=== PATIENT | male | born 1985 | race Caucasian/White ===

== ENCOUNTER 2016-11-21 17:47 | Observation (INO) ==
--- NOTE | 2016-11-21 18:43 | Emergency Department Note ---
Disposition Clinical Impression: Asthma, Smoker, Vomiting, Influenza A, Wheezing Disposition: Admitted As Inpatient Referrals: NO,PCP [Primary Care Provider] - Forms: ED Satisfaction Letter General Adult HPI - General Chief complaint: ED Nausea/Vomiting/Diarrhea Stated complaint: cold symptoms/n/v Time Seen by Provider: 11/21/16 18:40 Source: patient Limitations: no limitations - History of Present Illness HPI Narrative: 31-year-old male reports emergency department complaining of a cough, shortness of breath, generalized aches and pains, sore throat and runny nose. He reports his son has similar symptoms regarding cough and runny nose. The patient reports he has had a fever. He has been ill for about a day. The patient describes a history of asthma. He is a smoker. The patient denies any heart problems no history of CHF DVT PE or cancer. There is no history of leg swelling or pain, no coughing up blood or syncope. He has vomited a few times but does not have significant abdominal pain no diarrhea. He describes a headache associated with coughing. I.e. when he coughs his head hurts. There is no history of head trauma, no neck stiffness or rash. No convulsions or confusion or trouble walking hearing seeing or speaking. The patient has had no acute back pain. He does not take blood thinning medication. There is no history of unilateral arm or leg weakness or numbness. No trouble speaking or hearing. No dysarthria. Onset (ago): day(s) Pain Scale: 10 - Related Data Previous Rx's Medication Instructions Recorded Gabapentin [Neurontin] 800 mg PO TID #90 tablet 12/03/15 HydrOXYzine Pamoate [HydrOXYzine 50 mg PO TID PRN #90 cap 12/03/15 Pamoate] RX: Doxepin [Sinequan] 25 mg PO HS PRN #60 capsule 12/03/15 RX: Ibuprofen [Motrin] 400 mg PO Q6HR PRN #60 tablet 12/03/15 Cephalexin [Keflex] 500 mg PO BID #20 capsule 12/05/15 Sulfamethoxazole/Trimeth DS 2 each PO BID #40 tablet 12/05/15 [Bactrim DS] Ropinirole HCl [Requip] 2 mg PO HS 20 Days 12/31/15 Ondansetron ODT [Zofran ODT] 4 mg SL Q6HR PRN #15 tab.rapdis 01/19/16 RX: Gabapentin [Neurontin] 800 mg PO TID #90 tablet 09/14/16 Allergies Allergy/AdvReac Type Severity Reaction Status Date / Time codeine Allergy Hives Verified 09/14/16 18:25 All systems ED: reviewed and negative except as stated. Past Medical History - Past Medical History Medical history: Reports: asthma, kidney stones Surgical history: Reports: other Psychiatric history: Reports: depression, prior suicide attempt, previous psychiatric hospitalization - Social History Smoking Status: Current every day smoker Smokeless Tobacco Status: No Alcohol use: Reports: none Drug use: Reports: none, cocaine, opiates, marijuana, methamphetamine Physical Exam - General Limitations: no limitations General appearance: alert, in no apparent distress - Head Head exam: atraumatic, normocephalic, normal inspection - Eye Eye exam: Present: normal appearance, PERRL, EOMI - ENT ENT exam: normal exam, normal oropharynx, mucous membranes moist, TM's normal bilaterally, normal external ear exam - Neck Neck exam: Present: normal inspection, full ROM, trachea midline. Absent: meningismus - Chest Chest inspection: Present: symmetric chest wall rise. Absent: tenderness - Respiratory Respiratory exam: Present: wheezes, prolonged expiratory phase. Absent: respiratory distress - Cardiovascular Cardiovascular exam: Present: normal rhythm, tachycardia - Abdominal Exam Abdominal exam: Present: soft, Non-Tender, normal bowel sounds. Absent: tenderness, distention, guarding, rebound, rigidity, pulsatile mass - Extremities Exam Extremities exam: Present: normal inspection, full ROM, normal capillary refill. Absent: tenderness, pedal edema, joint swelling, calf tenderness - Expanded Lower Extremity Exam Neurovascular/Tendon exam: Absent: motor deficit, sensory deficit, tendon deficit, extremity cold to touch, pallor - Back Exam Back exam: Present: normal inspection, full ROM. Absent: tenderness, CVA tenderness (L), vertebral tenderness - Neurological Exam Neurological exam: Present: alert, oriented X3, CN II-XII intact. Absent: motor sensory deficit - Psychiatric Psychiatric exam: Present: normal affect, normal mood - Skin Skin exam: Present: warm, dry, intact, normal color. Absent: rash, cyanosis, diaphoresis, erythema, pallor, mottled Course - Reevaluation(s) Reevaluation #1: The patient received Solu-Medrol, as well as a DuoNeb. Re-auscultation of the lungs reveals markedly wheezing. A second DuoNeb was ordered. The patient reports he has no asthma medication is at home. He has not been admitted to the hospital as he was a child. He has never been on a ventilator. Vital Signs Temperature 99 F 11/21/16 18:15 Pulse Rate 102 11/21/16 18:15 Respiratory Rate 20 11/21/16 18:15 Blood Pressure 118/67 11/21/16 18:15 O2 Sat by Pulse Oximetry 94 L 11/21/16 18:15 Temperature 99 F 11/21/16 18:46 Pulse Rate 111 11/21/16 20:30 Respiratory Rate 16 11/21/16 20:30 Blood Pressure 147/76 11/21/16 20:30 O2 Sat by Pulse Oximetry 93 L 11/21/16 20:30 Oxygen Delivery Oxygen Delivery Room Air Medical Decision Making - MDM Narrative Medical decision making narrative: Patient has a known history of asthma, he is a smoker, he is flu A+, the patient has no breathing medicines or nebulizer at home, he was given Solu- Medrol and to Duo nebs here, he had persistent wheezing status post 2 nebs, IV fluid was also initiated.. His oxygen saturations did climb to 97% on room air , however he was still somewhat tachypnea and felt short of breath. Persistent wheezing noted. Based on the patient's acute infection, history of asthma, nicotine dependence, and persistent wheezing, reports of vomiting, initial tachycardia, and slightly low blood pressure, I thought it would be appropriate to admit the patient for observation and further therapy. I consulted with the hospitalist on-call. - Lab Data Lab results reviewed: Yes I reviewed the patient's lab results. Result diagrams: 11/21/16 19:03 11/21/16 19:03 Lab Results 11/21/16 11/21/16 Range/Units 19: 19: WBC 10.3 (4.3-11.1) K/mcL RBC 5.60 H (4.19-5.50) M/mcL Hgb 15.9 (12.9-16.9) g/dL Hct 48.0 (37.5-50.1) % MCV 85.7 (83.0-100.0) fL MCH 28.4 (28.0-33.3) pg MCHC 33.1 (31.6-35.5) g/dL RDW 13.4 (11.5-14.5) % Plt Count 195 (140-400) K/mcL MPV 9.3 L (9.4-12.4) fL Immature Gran % 0.3 (0-4) % Seg Neutrophils % 84.5 % Lymphocytes % 8.5 % Monocytes % 6.4 % Eosinophils % 0.0 % Basophils % 0.3 % Neutrophils # 8.7 (1.6-8.9) K/mcL Lymphocytes # 0.9 (0.6-4.6) K/mcL Monocytes # 0.7 (0.0-1.3) K/mcL Eosinophils # 0.0 (0.0-0.6) K/mcL Basophils # 0.0 (0.0-0.2) K/mcL Sodium 137 (136-145) mEq/L Potassium 4.4 (3.5-4.5) mEq/L Chloride 103 (98-109) mEq/L Carbon Dioxide 25 (19-29) mEq/L BUN 11 (8-26) mg/dL Creatinine 0.86 (0.72-1.25) mg/dL Est GFR ( Amer) > 60 (> 60) Est GFR (Non-Af Amer) > 60 (> 60) BUN/Creatinine Ratio 13 (6-26) Glucose 113 H (70-99) mg/dL Calculated Osmolality 284 (280-300) Calcium 9.1 (8.6-10.8) mg/dL Total Bilirubin 0.4 (0.2-1.2) mg/dL AST 25 (5-34) Units/L ALT 16 (0-55) Units/L Alkaline Phosphatase 74 (38-126) Units/L C-Reactive Protein 110 H (Less than 5) mg/L Serum Total Protein 8.2 (6.0-8.3) g/dL Albumin 4.2 (3.5-5.0) g/dL Globulin 4.0 H (2.4-3.5) g/dL Albumin/Globulin Ratio 1.1 (1.1-2.2) Lipase < 4 L (8-78) Units/L - Radiology Data Radiology results reviewed: Yes I reviewed the patient's radiology results.
[2016-11-21] MEDS ORDERED: Ipratropium/Albuterol Neb 3 ML IH ONE ×2 (18:50→19:55)
[2016-11-21] MEDS ORDERED: methylPREDNISolone 125 MG/2 ML VIAL IVP ONE (18:50)
[2016-11-21 19:09] LABS: Basophils % 0.3 %; Hemoglobin 15.9 g/dL (12.9-16.9); Immature Granulocytes % 0.3 % (0-4); Lymphocytes # 0.9 K/mcL (0.6-4.6); Lymphocytes % 8.5 %; Mean Corpuscular HGB Conc 33.1 g/dL (31.6-35.5); Mean Corpuscular Hemoglobin 28.4 pg (28.0-33.3); Mean Corpuscular Volume 85.7 fL (83.0-100.0); Mean Platelet Volume 9.3 fL (9.4-12.4); Monocytes # 0.7 K/mcL (0.0-1.3); Monocytes % 6.4 %; Neutrophils # 8.7 K/mcL (1.6-8.9); Platelet Count 195 K/mcL (140-400); Red Cell Distribution Width 13.4 % (11.5-14.5); Segmented Neutrophils % 84.5 %
[2016-11-21 19:25] LABS: Alanine Aminotransferase 16 Units/L (0-55); Albumin 4.2 g/dL (3.5-5.0); Albumin/Globulin Ratio 1.1 (1.1-2.2); Alkaline Phosphatase 74 Units/L (38-126); Aspartate Amino Transferase 25 Units/L (5-34); BUN/Creatinine Ratio 13 (6-26); Bilirubin,Total 0.4 mg/dL (0.2-1.2); Blood Urea Nitrogen 11 mg/dL (8-26); C-Reactive Protein 110 mg/L (Less than 5); Calcium 9.1 mg/dL (8.6-10.8); Carbon Dioxide 25 mEq/L (19-29); Chloride 103 mEq/L (98-109); Glucose 113 mg/dL (70-99); Lipase < 4 Units/L (8-78); Osmolality,Calculated 284 (280-300); Potassium 4.4 mEq/L (3.5-4.5); Sodium 137 mEq/L (136-145); Total Protein 8.2 g/dL (6.0-8.3); eGFR For African Americans > 60 (> 60); eGFR For Non-African Americans > 60 (> 60)
--- NOTE | 2016-11-21 23:26 | Internal Med History&Physical ---
Date of Encounter: 11/21/16 Time of Encounter: 23:23 Assessment and Plan (1) Acute asthma exacerbation Current visit: Yes Status: Acute Will start the patient on Solu-Medrol and [id number] nebulizer treatment. He will receive azithromycin 500 mg intravenously daily for acute bronchitis given his history of asthma and chronic smoking. His CRP is 100 will follow Qualifiers: Qualified Code(s): J45.901 - Unspecified asthma with (acute) exacerbation (2) Influenza A Current visit: Yes Status: Acute Tamiflu 75 mg twice daily. Airborne isolation Internal Medicine - H&P: HPI Chief complaint: sob History of present illness: Mr. Zheng is a 31 year old male with a past medical history of mild intermittent asthma presents to the emergency room today with shortness of breath. Approximately 36 hours ago patient started noticing a multitude of symptoms including bon fever up to 101, chills, sore throats, cough aches malaise and shortness of breath with any minimal exertion and chest wheezing. He mentioned that his son was sick earlier before him. work up in the emergency room showed evidence of influenza a virus infection. For observation There is a 17 pack your smoking history. He was persistently tachycardic and short of breath despite multiple breathing treatments so is being admitted to the hospital for observation. Social: He used to the illicit drugs before but not currently. He smokes one pack of cigarettes daily for the past 17 years. rarely alcohol family history: positive for coronary artery disease past medical history as above in addition to depression Past Med Surg Social Fam HX - Past Medical History Medical history: asthma, kidney stones Psychiatric history: depression, prior suicide attempt, previous psychiatric hospitalization - Past Surgical History Surgical History: other - Social History Smoking Status: Current every day smoker Smokeless Tobacco Status: No Alcohol use: none Drug use: none, cocaine, opiates, marijuana, methamphetamine Internal Medicine - H&P: Meds Doxepin [Sinequan] 25 mg PO HS PRN #60 capsule 12/03/15 [Rx] Gabapentin [Neurontin] 800 mg PO TID #90 tablet 12/03/15 [Rx] HydrOXYzine Pamoate [HydrOXYzine Pamoate] 50 mg PO TID PRN #90 cap 12/03/15 [Rx] Ibuprofen [Motrin] 400 mg PO Q6HR PRN #60 tablet 12/03/15 [Rx] Cephalexin [Keflex] 500 mg PO BID #20 capsule 12/05/15 [Rx] Sulfamethoxazole/Trimeth DS [Bactrim DS] 2 each PO BID #40 tablet 12/05/15 [Rx] Ropinirole HCl [Requip] 2 mg PO HS 20 Days 12/31/15 [Rx] Ondansetron ODT [Zofran ODT] 4 mg SL Q6HR PRN #15 tab.rapdis 01/19/16 [Rx] Gabapentin [Neurontin] 800 mg PO TID #90 tablet 09/14/16 [Rx] Allergies codeine Allergy (Verified 09/14/16 18:25) Hives All Systems PM: A 10-system review of systems was performed and is negative for pertinent findings except as documented above in the HPI. Review of systems: 10 point review systems is negative except for HPI. - Constitutional Vitals: Temp Pulse Resp BP Pulse Ox 99 F 103 16 137/70 94 L 11/21/16 18:46 11/21/16 22:00 11/21/16 23:00 11/21/16 23:00 11/21/16 22:00 Exam: Gen.: patient is alert oriented not in distress. Cardiac: Normal S1 S2 no additional sounds or murmurs chest: expiratory wheezing, coarse breath sounds abdomen soft nontender nondistended normal bowel sounds lower extremity: lax calf muscles neuro no focal deficit Internal Med - H&P Results - Labs CBC & Chem 7: 11/21/16 19:03 11/21/16 19:03
[2016-11-21] MEDS: Ipratropium/Albuterol Neb 3 ML IH SCH (23:41)
[2016-11-21] MEDS: Azithromycin 500 MG in D5% in Water 250 ML IVPB SCH (23:43)
[2016-11-21] MEDS: methylPREDNISolone 125 MG/2 ML VIAL IVP SCH (23:43)
[2016-11-22] MEDS: Ipratropium/Albuterol Neb 3 ML IH SCH ×6 (03:31→23:29)
[2016-11-22 05:09] LABS: Basophils % 0.2 %; Hematocrit 45.4 % (37.5-50.1); Immature Granulocytes % 0.3 % (0-4); Lymphocytes # 0.4 K/mcL (0.6-4.6); Lymphocytes % 7.1 %; Mean Corpuscular Hemoglobin 28.6 pg (28.0-33.3); Mean Corpuscular Volume 86.6 fL (83.0-100.0); Mean Platelet Volume 10.8 fL (9.4-12.4); Monocytes # 0.1 K/mcL (0.0-1.3); Monocytes % 2.1 %; Neutrophils # 5.5 K/mcL (1.6-8.9); Platelet Count 144 K/mcL (140-400); Red Blood Count 5.24 M/mcL (4.19-5.50); Red Cell Distribution Width 13.3 % (11.5-14.5); Segmented Neutrophils % 90.3 %
[2016-11-22 05:27] LABS: BUN/Creatinine Ratio 17 (6-26); Blood Urea Nitrogen 14 mg/dL (8-26); C-Reactive Protein 111 mg/L (Less than 5); Calcium 8.7 mg/dL (8.6-10.8); Carbon Dioxide 21 mEq/L (19-29); Chloride 106 mEq/L (98-109); Glucose 244 mg/dL (70-99); Magnesium 2.2 mg/dL (1.6-2.6); Osmolality,Calculated 293 (280-300); Potassium 3.8 mEq/L (3.5-4.5); Sodium 137 mEq/L (136-145); eGFR For African Americans > 60 (> 60); eGFR For Non-African Americans > 60 (> 60)
[2016-11-22 05:37] LABS: Platelet Estimate Decreased (Normal)
[2016-11-22] MEDS: *HR* Heparin 5,000 UNIT/ML VIAL SQ SCH ×2 (06:24→19:59)
[2016-11-22] MEDS: methylPREDNISolone 125 MG/2 ML VIAL IVP SCH ×4 (06:24→23:35)
[2016-11-22] MEDS: Famotidine 20 MG TABLET PO SCH ×2 (09:22→19:59)
[2016-11-22] MEDS: Acetaminophen 325 MG TABLET PO PRN ×2 (09:42→18:57)
--- NOTE | 2016-11-22 10:37 | Internal Med Progress Note ---
Date of Encounter: 11/22/16 Time of Encounter: 10:35 - Assessment and plan (1) Acute asthma exacerbation Current Visit: Yes Status: Acute Assessment and plan: Severe acute asthma exacerbation secondary to influenza/bronchitis, not improving, not ready to be discharged Continue IV steroids/Solu-Medrol 60 mg every 6 hours Continue Tamiflu day 2 Consider discontinuing azithromycin Continue DuoNeb's Qualifiers: Asthma severity: severe persistent Qualified Code(s): J45.51 - Severe persistent asthma with (acute) exacerbation (2) Tobacco abuse Current Visit: Yes Status: Acute Assessment and plan: Smoking cessation counseling given for 5 minutes. Nicotine patch ordered (3) Steroid-induced hyperglycemia Current Visit: Yes Status: Acute Assessment and plan: Consider insulin sliding scale if worse (4) Influenza A Current Visit: Yes Status: Acute Assessment and plan: Continue Tamiflu, isolation High risk for complications from influenza A and acute asthma exacerbation - Time Spent With Patient Greater than 35 minutes - Subjective Interval history: Complains of severe shortness of breath, headache, muscle aches, no chest pain, no dysuria, no diarrhea. No fevers overnight - Constitutional Vitals: Temp Pulse Resp BP Pulse Ox 98.0 F 91 18 95/58 100 11/22/16 07:01 11/22/16 07:01 11/22/16 08:08 11/22/16 07:01 11/22/16 09:18 General appearance: Present: A&O X 3 - Head Head exam: Present: atraumatic, normocephalic - Eye Eye exam: Present: PERRL, conjuntiva pink, sclera anicteric Pupils: Present: PERRL - Neck Neck exam general surgery: Present: supple, trachea midline. Absent: lymphadenopathy - Respiratory Respiratory exam: Present: CTAB, wheezes (Severe Diffuse crackles and wheezing) . Absent: accessory muscle use, rales, rhonchi - Cardiovascular Cardiovascular exam: Present: RRR, +S1, +S2. Absent: diastolic murmur, gallop, rubs, systolic murmur - GI/Abdominal GI/Abdominal exam: Present: normal bowel sounds, soft, no peritoneal signs. Absent: distended, tenderness - Extremities Exam Extremities exam: Present: warm, radial pulses palpable and symetrical. Absent : calf tenderness, cyanotic, pedal edema - Neurological Exam Neurological exam: Present: CN II-XII intact, oriented X3, no focal deficits. Absent: pronater drift, facial droop, speech deficit - Skin Skin exam: Present: dry, intact Internal Medicine: Result - Labs CBC & Chem 7: 11/22/16 04:39 11/22/16 04:39 Labs: Short CBC 11/22/16 Range/Units 04:39 WBC 6.1 (4.3-11.1) K/mcL Hgb 15.0 (12.9-16.9) g/dL Hct 45.4 (37.5-50.1) % Plt Count 144 (140-400) K/mcL Neutrophils # 5.5 (1.6-8.9) K/mcL BMP 11/22/16 04:39 Sodium 137 Potassium 3.8 Chloride 106 Carbon Dioxide 21 BUN 14 Creatinine 0.83 Glucose 244 H Calcium 8.7 - VTE Documentation of Mechanical Device: Intermittent pneumatic compression device Consult Discharge Plan - Plan Referrals: NO,PCP [Primary Care Provider] -
[2016-11-22] MEDS: Nicotine 21 MG PATCH.TD24 TD SCH (11:16)
[2016-11-22] MEDS: Azithromycin 500 MG in D5% in Water 250 ML IVPB SCH (23:35)
[2016-11-23] MEDS: Ipratropium/Albuterol Neb 3 ML IH SCH ×6 (03:51→23:49)
[2016-11-23] MEDS: *HR* Heparin 5,000 UNIT/ML VIAL SQ SCH ×2 (05:48→18:04)
[2016-11-23] MEDS: methylPREDNISolone 125 MG/2 ML VIAL IVP SCH (05:49)
--- NOTE | 2016-11-23 07:43 | Internal Med Progress Note ---
Date of Encounter: 11/23/16 Time of Encounter: 07:41 - Assessment and plan (1) Acute asthma exacerbation Current Visit: Yes Status: Acute Assessment and plan: Severe acute asthma exacerbation secondary to influenza/bronchitis, not improving, not ready to be discharged Decrease the dose of IV steroids/Solu-Medrol down to 40 mg 3 times a day Continue Tamiflu day 3 Consider discontinuing azithromycin day 3 Continue DuoNeb's Start Lasix IV due to severe congestion , consider CXR if worse Qualifiers: Asthma severity: severe persistent Qualified Code(s): J45.51 - Severe persistent asthma with (acute) exacerbation (2) Tobacco abuse Current Visit: Yes Status: Acute Assessment and plan: Smoking cessation counseling given for 5 minutes. Nicotine patch ordered (3) Steroid-induced hyperglycemia Current Visit: Yes Status: Acute Assessment and plan: Consider insulin sliding scale if worse (4) Influenza A Current Visit: Yes Status: Acute Assessment and plan: Continue Tamiflu, isolation High risk for complications from influenza A and acute asthma exacerbation - Time Spent With Patient Greater than 35 minutes - Subjective Interval history: Feels less short of breath, headache, muscle aches, no chest pain, no dysuria, no diarrhea. No fevers overnight, feels very congested - Constitutional Vitals: Temp Pulse Resp BP Pulse Ox 97.7 F 74 17 118/73 94 L 11/23/16 07:12 11/23/16 07:12 11/23/16 07:12 11/23/16 07:12 11/23/16 07:12 General appearance: Present: A&O X 3 - Head Head exam: Present: atraumatic, normocephalic - Eye Eye exam: Present: PERRL, conjuntiva pink, sclera anicteric Pupils: Present: PERRL - Neck Neck exam general surgery: Present: supple, trachea midline. Absent: lymphadenopathy - Respiratory Respiratory exam: Present: CTAB, rales (Diffuse coarse crackles with only mild wheezing). Absent: accessory muscle use, rhonchi, wheezes - Cardiovascular Cardiovascular exam: Present: RRR, +S1, +S2. Absent: diastolic murmur, gallop, rubs, systolic murmur - GI/Abdominal GI/Abdominal exam: Present: normal bowel sounds, soft, no peritoneal signs. Absent: distended, tenderness - Extremities Exam Extremities exam: Present: warm, radial pulses palpable and symetrical. Absent : calf tenderness, cyanotic, pedal edema - Neurological Exam Neurological exam: Present: CN II-XII intact, oriented X3, no focal deficits. Absent: pronater drift, facial droop, speech deficit - Skin Skin exam: Present: dry, intact Internal Medicine: Result - Labs CBC & Chem 7: 11/22/16 04:39 11/22/16 04:39 - VTE Documentation of Mechanical Device: Intermittent pneumatic compression device Consult Discharge Plan - Plan Referrals: NO,PCP [Primary Care Provider] -
[2016-11-23] MEDS: Furosemide 40 MG/4 ML VIAL IV SCH ×2 (09:54→19:57)
[2016-11-23] MEDS: MethylPREDNISolone 40 MG/ML VIAL IVP SCH ×3 (09:54→19:57)
[2016-11-23] MEDS: Nicotine 21 MG PATCH.TD24 TD SCH ×3 (09:55→16:17)
[2016-11-23] MEDS: Famotidine 20 MG TABLET PO SCH ×2 (09:56→19:58)
[2016-11-24] MEDS: Azithromycin 500 MG in D5% in Water 250 ML IVPB SCH (00:30)
[2016-11-24] MEDS: Ipratropium/Albuterol Neb 3 ML IH SCH ×2 (03:51→07:45)
[2016-11-24] MEDS: Acetaminophen 325 MG TABLET PO PRN (04:19)
[2016-11-24] MEDS: *HR* Heparin 5,000 UNIT/ML VIAL SQ SCH (05:27)
[2016-11-24 05:32] LABS: BUN/Creatinine Ratio 24 (6-26); Blood Urea Nitrogen 17 mg/dL (8-26); Calcium 9.5 mg/dL (8.6-10.8); Carbon Dioxide 27 mEq/L (19-29); Chloride 100 mEq/L (98-109); Glucose 104 mg/dL (70-99); Osmolality,Calculated 292 (280-300); Sodium 140 mEq/L (136-145); eGFR For African Americans > 60 (> 60); eGFR For Non-African Americans > 60 (> 60)
[2016-11-24 07:14] VITALS: BP 130/76
[2016-11-24] MEDS: Furosemide 40 MG/4 ML VIAL IV SCH (08:17)
[2016-11-24] MEDS: MethylPREDNISolone 40 MG/ML VIAL IVP SCH (08:17)
[2016-11-24] MEDS: Nicotine 21 MG PATCH.TD24 TD SCH (08:18)
[2016-11-24] MEDS: Famotidine 20 MG TABLET PO SCH (08:18)
--- NOTE | 2016-11-24 08:21 | Discharge Summary ---
Date of Encounter: 11/24/16 Time of Encounter: 08:16 - Discharge Diagnosis (1) Acute asthma exacerbation Priority: Primary Status: Acute Comments: Severe acute asthma exacerbation secondary to influenza/acute bronchitis Qualifiers: Asthma severity: severe persistent Qualified Code(s): J45.51 - Severe persistent asthma with (acute) exacerbation (2) Tobacco abuse Priority: Secondary Status: Acute Comments: Smoking cessation counseling given for 5 minutes. (3) Steroid-induced hyperglycemia Priority: Secondary Status: Acute (4) Influenza A Priority: Secondary Status: Acute - Discharge Medications Prescriptions: Albuterol Sulfate [Albuterol Inhaler] 1 puff IH Q4HR PRN 30 Days PRN Reason: Shortness Of Breath Furosemide [Lasix] 20 mg PO DAILY #7 tablet Oseltamivir [Tamiflu] 75 mg PO BID #5 capsule PredniSONE 10 mg PO DAILY 12 Days Home Medications: Albuterol Sulfate [Albuterol Inhaler] 1 puff IH Q4HR PRN 30 Days 11/24/16 [Rx] Furosemide [Lasix] 20 mg PO DAILY #7 tablet 11/24/16 [Rx] Oseltamivir [Tamiflu] 75 mg PO BID #5 capsule 11/24/16 [Rx] PredniSONE 10 mg PO DAILY 12 Days 11/24/16 [Rx] Allergies/Adverse Reactions: Allergies codeine Allergy (Verified 11/23/16 11:48) Hives Date of admission: 11/21/16 21:06 Primary care physician: PCP NO - Patient Status Disposition: Home, Self-Care Condition: Good Overall status at discharge: patient is progressing back to baseline - Discharge Instructions Follow Up With: NO,PCP [Primary Care Provider] - Additional Instructions: Follow with a primary care physician within the next 7 days. Continue 5 more doses of Tamiflu. Taper prednisone. Continue Lasix for 7 more days. May return to work on Tuesday. Quit smoking - Diet and Activity Activity: increase activity as tolerated Diet: regular diet Hospital course: Mr. Zheng is a 31 year old male with a past medical history of mild intermittent asthma and tobacco use, presented to the emergency room with shortness of breath. Approximately 36 hours prior to his admission the patient started noticing a multitude of symptoms including a fever of up to 101, chills , sore throats, cough aches malaise and shortness of breath with any minimal exertion and chest wheezing. He mentioned that his son was sick earlier before him. work up in the emergency room showed evidence of influenza A virus infection. For observation There is a 17 pack your smoking history. He was persistently tachycardic and short of breath despite multiple breathing treatments so is being admitted to the hospital. Chest x-ray did not show any acute abnormality. She was started on Tamiflu, Solu-Medrol IV and azithromycin. The patient did not improve rapidly for which his dose of Solu-Medrol had to be maintained and prolonged. She was extremely congested for which he was started on Lasix IV. The patient feels slightly better today although his lungs are not completely recovered. He is not hypoxic and will be continued on prednisone and Tamiflu for 2 more days. Time spent discussing smoking cessation with patient: 3 to 10 minutes - Time Spent with Patient Total time spent providing and/or coordinating discharge services: Greater than 30 minutes (40 minutes) - Constitutional Vitals: Temp Pulse Resp BP Pulse Ox 97.8 F 75 16 130/76 94 L 11/24/16 07:11 11/24/16 07:11 11/24/16 07:11 11/24/16 07:11 11/24/16 07:11 General appearance: Present: A&O X 3 - Head Head exam: Present: atraumatic, normocephalic - Eye Eye exam: Present: PERRL, conjuntiva pink, sclera anicteric Pupils: Present: PERRL - Neck Neck exam general surgery: Present: supple, trachea midline. Absent: lymphadenopathy - Respiratory Respiratory exam: Present: CTAB, rales (Diffuse crackles improved). Absent: accessory muscle use, rhonchi, wheezes - Cardiovascular Cardiovascular exam: Present: RRR, +S1, +S2. Absent: diastolic murmur, gallop, rubs, systolic murmur - GI/Abdominal GI/Abdominal exam: Present: normal bowel sounds, soft, no peritoneal signs. Absent: distended, tenderness - Extremities Exam Extremities exam: Present: warm, radial pulses palpable and symetrical. Absent : calf tenderness, cyanotic, pedal edema - Neurological Exam Neurological exam: Present: CN II-XII intact, oriented X3, no focal deficits. Absent: pronater drift, facial droop, speech deficit - Skin Skin exam: Present: dry, intact - VTE Documentation of Mechanical Device: Intermittent pneumatic compression device
[2016-11-24] MEDS ORDERED: predniSONE 20 MG TABLET PO SCH (09:00)
== END 2016-11-24 09:18 | disposition home or self-care (01) ==
LOC: 3BNU 17:47 → EMEROO 17:47 → SUATTDRO 21:06 → 3BNU 23:10
PROVIDERS: ADMIT Hospitalist; ATTEND Internal Medicine

== ENCOUNTER 2019-06-09 11:43 | Inpatient (IN) ==
--- NOTE | 2019-06-09 12:07 | Emergency Department Note ---
Disposition Clinical Impression: Polysubstance abuse, Suicidal ideation Disposition: Admitted As Inpatient Condition: Good Time of Disposition: 18:16 Psych HPI - General Chief Complaint: ED Psychiatric Symptoms Stated Complaint: SI Time Seen by Provider: 06/09/19 11:55 Source: patient Mode of arrival: private vehicle Limitations: no limitations Nursing Notes Reviewed: Yes Vital Signs Reviewed: Yes - History of Present Illness Pt complaint: suicidal ideation Onset (ago): day(s) Duration: constant, getting worse History of similar episodes: Yes Improves with: none Worsens with: none Context: significant life stressor Alleged intoxication: No Associated Psychiatric Symptoms: suicidal ideation Associated symptoms: Reports: denies other symptoms. Denies: confusion, headache, shortness of breath, nausea, vomiting, syncope, insomnia Traumatic symptoms: denies traumatic injury Treatments prior to arrival: none Self harm or harm to others: admits thoughts of self harm, denies having a plan - Related Data Home Medications Medication Instructions Recorded Confirmed Buprenorphine HCl/Naloxone HCl 1 each SL BID 10/01/18 06/10/19 [Buprenorphin-Naloxon 8-2 mg Sl] Allergies Allergy/AdvReac Type Severity Reaction Status Date / Time codeine AdvReac Hives Verified 06/10/19 16:36 All systems ED: reviewed and negative except as stated. Review of Systems: As Per HPI Constitutional: Denies: fever, chills, weakness Cardiovascular: Denies: chest pain, palpitations, syncope Respiratory: Reports: cough (intermittant, dry). Denies: dyspnea, wheezes, hemoptysis, stridor, sputum production Gastrointestinal: Denies: abdominal pain, nausea, vomiting Musculoskeletal: Denies: back pain, neck pain, joint swelling, arthralgia Neurological: Denies: headache, weakness, confusion, vertigo Hematological/Lymphatic: Denies: easy bleeding, easy bruising Past Medical History - Past Medical History Attestation: Yes The following information was validated with the patient. Source: patient Medical history: Reports: asthma, kidney stones Surgical history: Reports: non-contributory, other Psychiatric history: Reports: anxiety, depression, prior suicide attempt, previous psychiatric hospitalization - Social History Smoking Status: Current every day smoker Smokeless Tobacco Status: No Alcohol use: Reports: none Drug use: Reports: marijuana, methamphetamine, other Physical Exam - General Limitations: no limitations General appearance: alert, in no apparent distress - Head Head exam: atraumatic, normocephalic, normal inspection - Eye Eye exam: Present: normal appearance, PERRL, EOMI. Absent: scleral icterus, conjunctival injection, nystagmus, miosis, mydriasis, periorbital swelling - ENT ENT exam: normal oropharynx, mucous membranes moist - Neck Neck exam: Present: normal inspection, trachea midline. Absent: meningismus - Respiratory Respiratory exam: Present: normal lung sounds bilaterally. Absent: respiratory distress - Cardiovascular Cardiovascular exam: Present: regular rate (repeat rate is 88), normal rhythm - Extremities Exam Extremities exam: Present: normal inspection, full ROM - Neurological Exam Neurological exam: Present: alert, oriented X3, CN II-XII intact, normal gait - Psychiatric Psychiatric exam: Present: normal affect, normal mood - Skin Skin exam: Present: warm, dry, intact, normal color Course Course Narrative: Patient presents for evaluation of suicidal ideation. He denies any specific plan at this time, but does have a history of SI and attempts which has caused him to be concerned. Labs ordered. Sitter is with the patient. Patient states still unable to urinate. Labs resulted. 1A called. - Consultations Consultation #1: Case discussed with SEDRICK Ruiz from [facility]. She is aware of the consult and we will send someone up to see the patient. Time: 16:02 Consultation #2: Per [facility] nurse Salc[place], patient is going to be placed in a dual diagnosis facility for treatment of his substance abuse and his suicidal ideation. Time: 17:50 Vital Signs Temperature 98.1 F 06/09/19 11:49 Pulse Rate 104 06/09/19 11:49 Respiratory Rate 18 06/09/19 11:49 Blood Pressure 146/84 06/09/19 11:49 O2 Sat by Pulse Oximetry 95 06/09/19 11:49 Temperature 98.1 F 06/09/19 12:41 Pulse Rate 69 06/09/19 14:36 Respiratory Rate 15 06/09/19 14:36 Blood Pressure 131/77 06/09/19 14:36 O2 Sat by Pulse Oximetry 97 06/09/19 14:36 Oxygen Delivery Oxygen Delivery Room Air Psych - Lab Data Lab results reviewed: Yes I reviewed the patient's lab results. Result diagrams: 06/09/19 12:11 06/09/19 12:11 Lab Results 06/09/19 06/09/1919 Range/Units 12:11 12:11 15:35 WBC 9.4 (4.3-11.1) K/mcL RBC 5.04 (4.19-5.50) M/mcL Hgb 14.8 (12.9-16.9) g/dL Hct 44.2 (37.5-50.1) % MCV 87.7 (83.0-100.0) fL MCH 29.4 (28.0-33.3) pg MCHC 33.5 (31.6-35.5) g/dL RDW 12.7 (11.5-14.5) % Plt Count 246 (140-400) K/mcL MPV 9.5 (9.4-12.4) fL Immature Gran % 0.6 (0-4) % Seg Neutrophils % 66.8 % Lymphocytes % 18.2 % Monocytes % 8.0 % Eosinophils % 5.8 % Basophils % 0.6 % Neutrophils # 6.3 (1.6-8.9) K/mcL Lymphocytes # 1.7 (0.6-4.6) K/mcL Monocytes # 0.8 (0.0-1.3) K/mcL Eosinophils # 0.5 (0.0-0.6) K/mcL Basophils # 0.1 (0.0-0.2) K/mcL Sodium 137 (136-145) mEq/L Potassium 3.8 (3.5-5.1) mEq/L Chloride 106 (98-107) mEq/L Carbon Dioxide 23 (23-29) mEq/L BUN 12 (6-20) mg/dL Creatinine 0.69 L (0.70-1.30) mg/dL Est GFR ( Amer) > 60 (> 60) Est GFR (Non-Af Amer) > 60 (> 60) BUN/Creatinine Ratio 17 (6-26) Glucose 127 H (70-105) mg/dL Calculated Osmolality 285 (280-300) Calcium 9.1 (8.6-10.3) mg/dL Urine Color Yellow (Yellow) Urine Clarity Clear (Clear) Urine pH 5.5 (5.0-8.0) pH Units Ur Specific [place] 1.027 H (1.010-1.025) Urine Protein Negative (Neg-Trace) mg/dL Urine Glucose (UA) Normal (Normal) mg/dL Urine Ketones Negative (Negative) mg/dL Urine Blood Negative (Negative) Urine Nitrite Negative (Negative) Urine Bilirubin Negative (Negative) Urine Urobilinogen Normal (Normal) mg/dL Ur Leukocyte Esterase Small H (Negative) Urine Microscopic RBC 0-3 (0-3) per hpf Urine Microscopic WBC 15-30 H (0-3) per hpf Ur Squamous Epith Cells Moderate H (None-Few) per lpf Urine Bacteria None Seen (None-Few) per hpf Hyaline Casts None Seen (None-Few) per lpf Salicylates < 2.5 L (15.0-30.0) mg/dL Urine Opiates Screen (Nvtjdr=677) ng/mL Ur Buprenorphine Scrn (Cutoff=5) ng/mL Acetaminophen < 10 L (10-20) mcg/mL Ur Barbiturates Screen (Sswfhv=782) ng/mL Ur Phencyclidine Scrn (Cutoff=25) ng/mL Ur Amphetamines Screen (Rigdge=7914) ng/mL U Benzodiazepines Scrn (Qzjegv=964) ng/mL Urine Cocaine Screen (Cutoff= 300) ng/mL U Marijuana (THC) Screen (Cutoff = 50) ng/mL Ur Drug Screen Interp Ethyl Alcohol < 10 (Less than 10) mg/dL 06/09/19 Range/Units 15:35 WBC (4.3-11.1) K/mcL RBC (4.19-5.50) M/mcL Hgb (12.9-16.9) g/dL Hct (37.5-50.1) % MCV (83.0-100.0) fL MCH (28.0-33.3) pg MCHC (31.6-35.5) g/dL RDW (11.5-14.5) % Plt Count (140-400) K/mcL MPV (9.4-12.4) fL Immature Gran % (0-4) % Seg Neutrophils % % Lymphocytes % % Monocytes % % Eosinophils % % Basophils % % Neutrophils # (1.6-8.9) K/mcL Lymphocytes # (0.6-4.6) K/mcL Monocytes # (0.0-1.3) K/mcL Eosinophils # (0.0-0.6) K/mcL Basophils # (0.0-0.2) K/mcL Sodium (136-145) mEq/L Potassium (3.5-5.1) mEq/L Chloride (98-107) mEq/L Carbon Dioxide (23-29) mEq/L BUN (6-20) mg/dL Creatinine (0.70-1.30) mg/dL Est GFR ( Amer) (> 60) Est GFR (Non-Af Amer) (> 60) BUN/Creatinine Ratio (6-26) Glucose (70-105) mg/dL Calculated Osmolality (280-300) Calcium (8.6-10.3) mg/dL Urine Color (Yellow) Urine Clarity (Clear) Urine pH (5.0-8.0) pH Units Ur Specific [place] (1.010-1.025) Urine Protein (Neg-Trace) mg/dL Urine Glucose (UA) (Normal) mg/dL Urine Ketones (Negative) mg/dL Urine Blood (Negative) Urine Nitrite (Negative) Urine Bilirubin (Negative) Urine Urobilinogen (Normal) mg/dL Ur Leukocyte Esterase (Negative) Urine Microscopic RBC (0-3) per hpf Urine Microscopic WBC (0-3) per hpf Ur Squamous Epith Cells (None-Few) per lpf Urine Bacteria (None-Few) per hpf Hyaline Casts (None-Few) per lpf Salicylates (15.0-30.0) mg/dL Urine Opiates Screen Negative (Mbswnv=176) ng/mL Ur Buprenorphine Scrn Positive H (Cutoff=5) ng/mL Acetaminophen (10-20) mcg/mL Ur Barbiturates Screen Negative (Usivhy=396) ng/mL Ur Phencyclidine Scrn Negative (Cutoff=25) ng/mL Ur Amphetamines Screen Positive H (Cbiowh=8891) ng/mL U Benzodiazepines Scrn Negative (Ywqhgh=753) ng/mL Urine Cocaine Screen Negative (Cutoff= 300) ng/mL U Marijuana (THC) Screen Positive H (Cutoff = 50) ng/mL Ur Drug Screen Interp See Below Ethyl Alcohol (Less than 10) mg/dL Psychiatric Medical Clearance - Medical Clearance Checklist Does the patient have a NEW psychiatric condition?: Yes Any abnormalities indicating possible medical illness?: No Any history of medical issues?: No Medical History: No Social History Section defined Any abnormal vital signs prior to transfer?: No Current Vitals: Last Vital Signs Temp 97.9 F 06/10/19 09:00 Pulse 51 06/10/19 09:00 Resp 18 06/10/19 09:00 BP 130/85 06/10/19 09:00 Pulse Ox 99 06/10/19 09:00 Is the patient intoxicated or cognitively impaired?: No Psychiatric Lab Panel: Drug Levels and Toxicity 06/09/19 06/09/19 12:11 15:35 Urine Opiates Screen Negative Acetaminophen < 10 L Ur Barbiturates Screen Negative Ur Phencyclidine Scrn Negative Ur Amphetamines Screen Positive H U Benzodiazepines Scrn Negative Urine Cocaine Screen Negative U Marijuana (THC) Screen Positive H Ethyl Alcohol < 10 Any abnormalities on the physical exam?: No Any abnormal labs?: Yes Abnormal Labs: Abnormal lab results Creatinine 0.69 mg/dL (0.70-1.30) L 06/09/19 12:11 Glucose 127 mg/dL (70-105) H 06/09/19 12:11 Ur Specific [place] 1.027 (1.010-1.025) H 06/09/19 15:35 Ur Leukocyte Esterase Small (Negative) H 06/09/19 15:35 Urine Microscopic WBC 15-30 per hpf (0-3) H 06/09/19 15:35 Ur Squamous Epith Cells Moderate per lpf (None-Few) H 06/09/19 15:35 Salicylates < 2.5 mg/dL (15.0-30.0) L 06/09/19 12:11 Ur Buprenorphine Scrn Positive ng/mL (Cutoff=5) H 06/09/19 15:35 Acetaminophen < 10 mcg/mL (10-20) L 06/09/19 12:11 Ur Amphetamines Screen Positive ng/mL (Byceqn=7382) H 06/09/19 15:35 U Marijuana (THC) Screen Positive ng/mL (Cutoff = 50) H 06/09/19 15:35 Does the patient require durable medical equiptment?: No Is the patient ambulatory?: Yes Is the patient a fall risk?: No Has the patient been medically cleared?: Yes Any acute medical condition require Tx prior to transfer?: No Statement of Medical Clearance: I have evaluated the patient, reviewed diagnostic information, and certify that the patient's medical condition is sufficiently stable that transfer to the psychiatric unit does not pose a significant risk of deterioration. S.BMarcos - S.B.A.R. Situation: Demographics, MOA Background: Presenting Complaint, Relevant PMH, Meds, & Allergies Assessment: Vital Signs, Course and respsone to treatment, Exam Concerns, Patient/Family Expectation, Pertinant Lab Results, Outstanding Labs Recommendation: Barrier(s) to disposition, Recommendation based on pending studies, treatments, or consults S.B.A.R. Report Given to: KIRK ColesBShahramAShahram Repor Time: 18:15 Attestation Statement - Attestation Attestation: I, Victor Manuel Wong, examined this patient and my medical decision-making was reviewed with the DENTAL SCHEDULER/PA/Advanced Practice Nurse/Resident Physician. I agree with the documented findings, disposition and treatment plan as described except to the extent set forth below. 34-year-old male presents emergency Department with concerns of suicidal ideation. Patient states he has a history of suicide attempt in the past with medication overdose. Patient did not have a specific plan today. Patient was medically cleared and evaluated by behavioral health. Disposition pending at this time.
[2019-06-09 12:24] LABS: Basophils # 0.1 K/mcL (0.0-0.2); Basophils % 0.6 %; Eosinophils # 0.5 K/mcL (0.0-0.6); Eosinophils % 5.8 %; Hematocrit 44.2 % (37.5-50.1); Hemoglobin 14.8 g/dL (12.9-16.9); Immature Granulocytes % 0.6 % (0-4); Lymphocytes # 1.7 K/mcL (0.6-4.6); Lymphocytes % 18.2 %; Mean Corpuscular HGB Conc 33.5 g/dL (31.6-35.5); Mean Corpuscular Hemoglobin 29.4 pg (28.0-33.3); Mean Corpuscular Volume 87.7 fL (83.0-100.0); Mean Platelet Volume 9.5 fL (9.4-12.4); Monocytes # 0.8 K/mcL (0.0-1.3); Neutrophils # 6.3 K/mcL (1.6-8.9); Platelet Count 246 K/mcL (140-400); Red Blood Count 5.04 M/mcL (4.19-5.50); Red Cell Distribution Width 12.7 % (11.5-14.5); Segmented Neutrophils % 66.8 %; White Blood Count 9.4 K/mcL (4.3-11.1)
[2019-06-09 12:41] LABS: Acetaminophen < 10 mcg/mL (10-20); BUN/Creatinine Ratio 17 (6-26); Blood Urea Nitrogen 12 mg/dL (6-20); Calcium 9.1 mg/dL (8.6-10.3); Carbon Dioxide 23 mEq/L (23-29); Chloride 106 mEq/L (98-107); Ethanol < 10 mg/dL (Less than 10); Glucose 127 mg/dL (70-105); Osmolality,Calculated 285 (280-300); Potassium 3.8 mEq/L (3.5-5.1); Salicylate < 2.5 mg/dL (15.0-30.0); Sodium 137 mEq/L (136-145); eGFR For African Americans > 60 (> 60); eGFR For Non-African Americans > 60 (> 60)
[2019-06-09 15:46] LABS: Bilirubin,Urine Negative (Negative); Blood,Urine Negative (Negative); Clarity,Urine Clear (Clear); Color,Urine Yellow (Yellow); Glucose,Urine (UA) Normal (Normal); Ketones,Urine Negative (Negative); Leukocyte Esterase,Urine Small (Negative); Nitrite,Urine Negative (Negative); PH,Urine 5.5 pH Units (5.0-8.0); Protein,Urine Negative (Neg-Trace); Specific Gravity,Urine 1.027 (1.010-1.025); Urobilinogen,Urine Normal (Normal)
[2019-06-09 15:47] LABS: Bacteria,Urine None Seen per hpf (None-Few); Hyaline Casts,Urine None Seen per lpf (None-Few); RBC,Urine 0-3 per hpf (0-3); Squamous Epithelial Cell,Urine Moderate per lpf (None-Few); WBC,Urine 15-30 per hpf (0-3)
[2019-06-09 15:59] LABS: Amphetamine Screen,Urine Positive ng/mL (Cutoff=1000); Barbiturate Screen,Urine Negative ng/mL (Cutoff=200); Benzodiazepines Screen,Urine Negative ng/mL (Cutoff=200); Cannabinoid Screen,Urine Positive ng/mL (Cutoff = 50); Cocaine Screen,Urine Negative ng/mL (Cutoff= 300); Opiate Screen,Urine Negative ng/mL (Cutoff=300); Phencyclidine Screen,Urine Negative ng/mL (Cutoff=25)
--- NOTE | 2019-06-09 18:21 | Emergency Department Note ---
Disposition Clinical Impression: Polysubstance abuse, Suicidal ideation Disposition: Admitted As Inpatient Condition: Good Referrals: NONE,PCP [Primary Care Provider] - Forms: ED Satisfaction Letter Time of Disposition: 03:04 Psych HPI - General Chief Complaint: ED Psychiatric Symptoms Stated Complaint: SI Time Seen by Provider: 06/09/19 11:55 Source: patient Mode of arrival: private vehicle Nursing Notes Reviewed: Yes Vital Signs Reviewed: Yes - History of Present Illness Duration: constant, getting worse Improves with: none Worsens with: none Associated symptoms: Reports: denies other symptoms. Denies: confusion, headache, shortness of breath, nausea, vomiting, syncope, insomnia Treatments prior to arrival: none - Related Data Home Medications Medication Instructions Recorded Confirmed Buprenorphine HCl/Naloxone HCl 1 each SL BID 10/01/18 10/01/18 [Buprenorphin-Naloxon 8-2 mg Sl] Previous Rx's Medication Instructions Recorded Gabapentin [Neurontin] 100 mg PO TID #90 capsule 10/03/18 Sertraline [Zoloft] 50 mg PO DAILY #30 tablet 10/03/18 Albuterol Sulfate [Albuterol 2 puff IH Q4HR #1 hfa.aer.ad 10/13/18 Inhaler] PredniSONE [Deltasone] 20 mg PO DAILY #10 tablet 10/13/18 Allergies Allergy/AdvReac Type Severity Reaction Status Date / Time codeine AdvReac Hives Verified 10/01/18 09:31 Constitutional: Denies: fever, chills, weakness Cardiovascular: Denies: chest pain, palpitations, syncope Respiratory: Reports: cough (intermittant, dry). Denies: dyspnea, wheezes, hemoptysis, stridor, sputum production Gastrointestinal: Denies: abdominal pain, nausea, vomiting Musculoskeletal: Denies: back pain, neck pain, joint swelling, arthralgia Neurological: Denies: headache, weakness, confusion, vertigo Hematological/Lymphatic: Denies: easy bleeding, easy bruising Past Medical History - Past Medical History Medical history: Reports: asthma, kidney stones Surgical history: Reports: non-contributory, other Psychiatric history: Reports: anxiety, depression, prior suicide attempt, previous psychiatric hospitalization - Social History Smoking Status: Current every day smoker Smokeless Tobacco Status: No Alcohol use: Reports: none Drug use: Reports: marijuana, methamphetamine, other Physical Exam - General Limitations: no limitations General appearance: alert, in no apparent distress - Head Head exam: normocephalic - Eye Eye exam: Absent: periorbital swelling - Chest Chest inspection: Present: symmetric chest wall rise - Respiratory Respiratory exam: Absent: respiratory distress - Cardiovascular Cardiovascular exam: Present: regular rate - Skin Skin exam: Present: warm, dry, intact, normal color Course Course Narrative: Patient initially seen by dayshift provider Luzma Abad PA-C and Dr. Victor Manuel Wong. Due to shift change, care of this patient was transferred over to [place]. I did discuss patient with Luzma Abad. Briefly patient is a 34-year-old male with known history of substance abuse currently prescribe Suboxone, depressive disorder, anxiety disorder, presents with suicidal ideation. He does have previous suicide attempts. Patient was medically cleared, and evaluated by behavioral health staff, who had discussed patient with on-call psychiatrist Dr. Aaron. Dr. Aaron recommends no diagnoses placement for further evaluation, treatment, and stabilization. Per dayshift report patient has been compliant non-agitated. Patient initially tachycardic, but vitals stable, and within normal limits now. Labwork unremarkable. Urine drug screen positive for buprenorphine, amphetamines, marijuana. At time of care transfer patient was sleeping comfortably in exam room. - Reevaluation(s) Reevaluation #1: Patient is resting or debris exam bed. I Did discuss patient with Sandra in . At this time, patient is being considered for placement at [facility], however has not been officially accepted at this point. Time: 21:37 Reevaluation #2: Per Sanrda in , they have been unsuccessful in placing patient as no facilities are accepting patient at this time. She mentions Dr. Aaron was consulted again, and this point they feel if patient is safe for discharge, leakage consider discharge him or department versus admission to for observation. He had a discussion with patient and he does describe worsening life stressors, history of past suicide attempt. He states that he prefers to not go home. I feel he would benefit from inpatient services at this time. I discussed this with again, they are agreeable to admitting here for observation. Time: 03:02 Vital Signs Temperature 98.1 F 06/09/19 11:49 Pulse Rate 104 06/09/19 11:49 Respiratory Rate 18 06/09/19 11:49 Blood Pressure 146/84 06/09/19 11:49 O2 Sat by Pulse Oximetry 95 06/09/19 11:49 Temperature 98.3 F 06/09/19 18:54 Pulse Rate 79 06/09/19 18:54 Respiratory Rate 15 06/09/19 18:54 Blood Pressure 104/62 06/09/19 18:54 O2 Sat by Pulse Oximetry 93 06/09/19 18:54 Oxygen Delivery Oxygen Delivery Room Air Psych - Lab Data Result diagrams: 06/09/19 12:11 06/09/19 12:11 Lab Results 06/09/19 06/09/19 06/09/19 Range/Units 12:11 12:11 15:35 WBC 9.4 (4.3-11.1) K/mcL RBC 5.04 (4.19-5.50) M/mcL Hgb 14.8 (12.9-16.9) g/dL Hct 44.2 (37.5-50.1) % MCV 87.7 (83.0-100.0) fL MCH 29.4 (28.0-33.3) pg MCHC 33.5 (31.6-35.5) g/dL RDW 12.7 (11.5-14.5) % Plt Count 246 (140-400) K/mcL MPV 9.5 (9.4-12.4) fL Immature Gran % 0.6 (0-4) % Seg Neutrophils % 66.8 % Lymphocytes % 18.2 % Monocytes % 8.0 % Eosinophils % 5.8 % Basophils % 0.6 % Neutrophils # 6.3 (1.6-8.9) K/mcL Lymphocytes # 1.7 (0.6-4.6) K/mcL Monocytes # 0.8 (0.0-1.3) K/mcL Eosinophils # 0.5 (0.0-0.6) K/mcL Basophils # 0.1 (0.0-0.2) K/mcL Sodium 137 (136-145) mEq/L Potassium 3.8 (3.5-5.1) mEq/L Chloride 106 (98-107) mEq/L Carbon Dioxide 23 (23-29) mEq/L BUN 12 (6-20) mg/dL Creatinine 0.69 L (0.70-1.30) mg/dL Est GFR ( Amer) > 60 (> 60) Est GFR (Non-Af Amer) > 60 (> 60) BUN/Creatinine Ratio 17 (6-26) Glucose 127 H (70-105) mg/dL Calculated Osmolality 285 (280-300) Calcium 9.1 (8.6-10.3) mg/dL Urine Color Yellow (Yellow) Urine Clarity Clear (Clear) Urine pH 5.5 (5.0-8.0) pH Units Ur Specific [place] 1.027 H (1.010-1.025) Urine Protein Negative (Neg-Trace) mg/dL Urine Glucose (UA) Normal (Normal) mg/dL Urine Ketones Negative (Negative) mg/dL Urine Blood Negative (Negative) Urine Nitrite Negative (Negative) Urine Bilirubin Negative (Negative) Urine Urobilinogen Normal (Normal) mg/dL Ur Leukocyte Esterase Small H (Negative) Urine Microscopic RBC 0-3 (0-3) per hpf Urine Microscopic WBC 15-30 H (0-3) per hpf Ur Squamous Epith Cells Moderate H (None-Few) per lpf Urine Bacteria None Seen (None-Few) per hpf Hyaline Casts None Seen (None-Few) per lpf Salicylates < 2.5 L (15.0-30.0) mg/dL Urine Opiates Screen (Fwdcje=176) ng/mL Ur Buprenorphine Scrn (Cutoff=5) ng/mL Acetaminophen < 10 L (10-20) mcg/mL Ur Barbiturates Screen (Qixmje=164) ng/mL Ur Phencyclidine Scrn (Cutoff=25) ng/mL Ur Amphetamines Screen (Twhunv=3140) ng/mL U Benzodiazepines Scrn (Ynturm=158) ng/mL Urine Cocaine Screen (Cutoff= 300) ng/mL U Marijuana (THC) Screen (Cutoff = 50) ng/mL Ur Drug Screen Interp Ethyl Alcohol < 10 (Less than 10) mg/dL 06/09/19 Range/Units 15:35 WBC (4.3-11.1) K/mcL RBC (4.19-5.50) M/mcL Hgb (12.9-16.9) g/dL Hct (37.5-50.1) % MCV (83.0-100.0) fL MCH (28.0-33.3) pg MCHC (31.6-35.5) g/dL RDW (11.5-14.5) % Plt Count (140-400) K/mcL MPV (9.4-12.4) fL Immature Gran % (0-4) % Seg Neutrophils % % Lymphocytes % % Monocytes % % Eosinophils % % Basophils % % Neutrophils # (1.6-8.9) K/mcL Lymphocytes # (0.6-4.6) K/mcL Monocytes # (0.0-1.3) K/mcL Eosinophils # (0.0-0.6) K/mcL Basophils # (0.0-0.2) K/mcL Sodium (136-145) mEq/L Potassium (3.5-5.1) mEq/L Chloride (98-107) mEq/L Carbon Dioxide (23-29) mEq/L BUN (6-20) mg/dL Creatinine (0.70-1.30) mg/dL Est GFR ( Amer) (> 60) Est GFR (Non-Af Amer) (> 60) BUN/Creatinine Ratio (6-26) Glucose (70-105) mg/dL Calculated Osmolality (280-300) Calcium (8.6-10.3) mg/dL Urine Color (Yellow) Urine Clarity (Clear) Urine pH (5.0-8.0) pH Units Ur Specific [place] (1.010-1.025) Urine Protein (Neg-Trace) mg/dL Urine Glucose (UA) (Normal) mg/dL Urine Ketones (Negative) mg/dL Urine Blood (Negative) Urine Nitrite (Negative) Urine Bilirubin (Negative) Urine Urobilinogen (Normal) mg/dL Ur Leukocyte Esterase (Negative) Urine Microscopic RBC (0-3) per hpf Urine Microscopic WBC (0-3) per hpf Ur Squamous Epith Cells (None-Few) per lpf Urine Bacteria (None-Few) per hpf Hyaline Casts (None-Few) per lpf Salicylates (15.0-30.0) mg/dL Urine Opiates Screen Negative (Ophioi=137) ng/mL Ur Buprenorphine Scrn Positive H (Cutoff=5) ng/mL Acetaminophen (10-20) mcg/mL Ur Barbiturates Screen Negative (Amypqq=170) ng/mL Ur Phencyclidine Scrn Negative (Cutoff=25) ng/mL Ur Amphetamines Screen Positive H (Bdrnux=9007) ng/mL U Benzodiazepines Scrn Negative (Gzoesz=780) ng/mL Urine Cocaine Screen Negative (Cutoff= 300) ng/mL U Marijuana (THC) Screen Positive H (Cutoff = 50) ng/mL Ur Drug Screen Interp See Below Ethyl Alcohol (Less than 10) mg/dL Psychiatric Medical Clearance - Medical Clearance Checklist Medical History: No Social History Section defined Current Vitals: Last Vital Signs Temp 98.3 F 06/09/19 18:54 Pulse 79 06/09/19 18:54 Resp 15 06/09/19 18:54 BP 104/62 06/09/19 18:54 Pulse Ox 93 06/09/19 18:54 Psychiatric Lab Panel: Drug Levels and Toxicity 06/09/19 06/09/19 12:11 15:35 Urine Opiates Screen Negative Acetaminophen < 10 L Ur Barbiturates Screen Negative Ur Phencyclidine Scrn Negative Ur Amphetamines Screen Positive H U Benzodiazepines Scrn Negative Urine Cocaine Screen Negative U Marijuana (THC) Screen Positive H Ethyl Alcohol < 10 Abnormal Labs: Abnormal lab results Creatinine 0.69 mg/dL (0.70-1.30) L 06/09/19 12:11 Glucose 127 mg/dL (70-105) H 06/09/19 12:11 Ur Specific [place] 1.027 (1.010-1.025) H 06/09/19 15:35 Ur Leukocyte Esterase Small (Negative) H 06/09/19 15:35 Urine Microscopic WBC 15-30 per hpf (0-3) H 06/09/19 15:35 Ur Squamous Epith Cells Moderate per lpf (None-Few) H 06/09/19 15:35 Salicylates < 2.5 mg/dL (15.0-30.0) L 06/09/19 12:11 Ur Buprenorphine Scrn Positive ng/mL (Cutoff=5) H 06/09/19 15:35 Acetaminophen < 10 mcg/mL (10-20) L 06/09/19 12:11 Ur Amphetamines Screen Positive ng/mL (Qyfvgy=3477) H 06/09/19 15:35 U Marijuana (THC) Screen Positive ng/mL (Cutoff = 50) H 06/09/19 15:35 Statement of Medical Clearance: I have evaluated the patient, reviewed diagnostic information, and certify that the patient's medical condition is sufficiently stable that transfer to the psychiatric unit does not pose a significant risk of deterioration.
[2019-06-10] MEDS ORDERED: Haloperidol Lactate 5 MG/ML VIAL IM PRN (03:42)
[2019-06-10] MEDS ORDERED: *HR* LORazepam 1 MG TABLET PO PRN (03:42)
[2019-06-10] MEDS ORDERED: Ibuprofen 400 MG TABLET PO PRN (03:42)
[2019-06-10] MEDS ORDERED: hydrOXYzine pamoate 25 MG CAPSULE PO PRN (03:42)
[2019-06-10] MEDS ORDERED: traZODone 50 MG TABLET PO PRN (03:42)
[2019-06-10] MEDS ORDERED: Mag Hydrox/Al Hydrox/Simeth 30 ML UDC PO PRN (03:42)
[2019-06-10] MEDS ORDERED: *HR* LORazepam 2 MG/ML VIAL IM PRN (03:42)
[2019-06-10] MEDS ORDERED: MOM Conc 10 ML UD.LIQ PO PRN (03:42)
--- NOTE | 2019-06-10 08:36 | Psychiatry History & Physical ---
Date of Encounter: 06/10/19 Time of Encounter: 07:40 History of Present Illness Patient Stated Chief Complaint: I want to kill myself Medicare Admission Attestation: For traditional Medicare patients the provided hospital inpatient services are reasonable and necessary and in the case of services not specified as inpatient-only under 42 CFR 419.22 (n), that they are appropriately provided as inpatient services in accordance 42 CFR 412.3. For Critical Access Hospital the patient may reasonably be expected to be discharged or transferred to a hospital within 96 hours after admission to the Critical Access Hospital. Admitted From: Emergency Dept Plans for Post Hospital Care: Home History of Present Illness: Mr. Zheng is a 34 year old male who was admitted secondary to SI with plan to overdose. Client has multiple stressors including recent-break up with girlfriend which has left him homeless, recent job loss, and relapse on drugs. He is now minimizing issues with his girlfriend and said that he left they did not actually breakup. Additionally he is now minimizing the issues of drug saying he only uses methamphetamines once 5 days ago. He has been taking Suboxone but he is very vague about this and says he does not have any left and he last took it 2-3 days ago and he cannot explain why he is out. Client has a history of polysubstance dependence including IV drugs. Limited supports. Has a history of depression and anxiety. Previous suicide attempts. Never consistent with treatment due to changes in insurance through work/lack of medical coverage. Remembers being on Mcgrath and Neurontin in the past but had limited response to medications. Physically healthy except for Asthma and Restless Legs. Willing to try an antidepressant which she was started on during his last hospitalization in September 2018 but he said he did not stick with. Will start with an SSRI and go from there. Past Med Surg Social Fam HX - Past Medical History Medical history: asthma, kidney stones - Past Psychiatric History Psychiatric history: Reports: depression, prior suicide attempt, previous psychiatric hospitalization Past psychiatric history details: Has a history of depression and anxiety. Previous suicide attempts. Never consistent with treatment due to changes in insurance through work/lack of medical coverage. Remembers being on Mcgrath and Neurontin in the past but had limited response to medications. He was discharged on Zoloft during his last hospitalization on 1A in September 2018. He did not follow through with linkage or continuing the medication. Family psychiatric history: No Family History of Suicide: None - Past Surgical History Surgical History: non-contributory, other - Social History Smoking Status: Current every day smoker Smokeless Tobacco Status: No Alcohol use: none Drug use: cocaine, marijuana, methamphetamine, other Occupational status: unemployed Current living situation: Homeless (This is unclear. At times he is that he is homeless because girlfriend kicked him out. At other times he is said he left girlfriend and could go back if he chose to.) Activity Level: Independent ambulation Recent Out of Country Travel Within the Last 8 Weeks: No Exposure or Possible Exposure to Illness During Travel: No - Family History Mother Adopted: No Family Member Ethnicity: Non- Living Status: Hx Family Endocrine Disorder: Yes (DM) Medications & Allergies Buprenorphine HCl/Naloxone HCl [Buprenorphin-Naloxon 8-2 mg Sl] 1 each SL BID 10/01/18 [History] Gabapentin [Neurontin] 100 mg PO TID #90 capsule 10/03/18 [Rx] Sertraline [Zoloft] 50 mg PO DAILY #30 tablet 10/03/18 [Rx] Albuterol Sulfate [Albuterol Inhaler] 2 puff IH Q4HR #1 hfa.aer.ad 10/13/18 [Rx] PredniSONE [Deltasone] 20 mg PO DAILY #10 tablet 10/13/18 [Rx] Allergy/AdvReac Type Severity Reaction Status Date / Time codeine AdvReac Hives Verified 10/01/18 09:31 Review of Systems Constitutional: Reports: chills Eyes: Denies: eye pain Ears, Nose, Throat: Denies: ear pain Cardiovascular: Denies: chest pain Respiratory: Denies: cough Gastrointestinal: Reports: abdominal pain Genitourinary male: Denies: urgency Musculoskeletal: Reports: myalgia Integumentary: Denies: rash Neurological: Reports: headache, weakness Psychiatric: Reports: depression, anxiety, abnormal sleep pattern, suicidal ideation, anhedonia. Denies: homicidal ideation, auditory hallucinations, visual hallucinations Endocrine: Reports: fatigue Hematologic/Lymphatic: Denies: easy bleeding Allergic/Immunologic: Denies: facial swelling Exam - HEENT Head exam IM: Present: atraumatic Eye exam IM: Present: EOMI ENT exam IM: Present: mucous membranes moist - Neurological Neurological exam: Present: CN II-XII intact (c) - Respiratory Respiratory exam IM: Absent: respiratory distress - GI/Abdominal GI/Abdominal exam IM: Present: no peritoneal signs - Extremities Extremities exam IM: Present: full ROM - Skin Skin exam IM: Absent: abrasion - Constitutional Vitals: Temp Pulse Resp BP Pulse Ox 97.8 F 72 18 110/70 97 06/10/19 03:48 06/10/19 03:48 06/10/19 03:48 06/10/19 03:48 06/10/19 03:48 General appearance: age & developmentally appropriate - Musculoskeletal Gait: slow Station: stooped Strength & Tone: normal for patient - Psychiatric Patient Orientation: Yes Person, Yes Time, Yes Place, Yes Circumstance Level of alertness: Alert Behavior: withdrawn Psychomotor activity: Slowed Eye Contact: Minimal Contact Mood Description: Depressed, Anxious Patient description of mood: Depressed Affect description: congruent with mood, dysphoric Speech Volume: Soft/Quiet Speech pattern: normal rate, normal rhythm, normal tone, fluent, spontaneous Language & Vocabulary: consistent with education Thought Process: Linear, Goal Oriented Thought Content: Yes Suicidal ideation, No Homicidal ideation Perceptual Disturbances: No Auditory hallucinations, No Visual hallucinations Attention Span Ability: Capable of Focused Attention Memory Description: Grossly Intact Patient Reliability: Reliable Historian Fund of knowledge: Yes abstraction ability, Yes average, Yes aware of current events Intelligence Estimate: Average Judgment: Limited Insight: Minimal Results - Drug Levels and Toxicology Drug Levels and Toxicology: Drug Levels and Toxicity 06/09/19 06/09/19 12:11 15:35 Urine Opiates Screen Negative Acetaminophen < 10 L Ur Barbiturates Screen Negative Ur Phencyclidine Scrn Negative Ur Amphetamines Screen Positive H U Benzodiazepines Scrn Negative Urine Cocaine Screen Negative U Marijuana (THC) Screen Positive H Ethyl Alcohol < 10 - Labs Labs: Laboratory Last Values WBC 9.4 K/mcL (4.3-11.1) 06/09/19 12:11 RBC 5.04 M/mcL (4.19-5.50) 06/09/19 12:11 Hgb 14.8 g/dL (12.9-16.9) 06/09/19 12:11 Hct 44.2 % (37.5-50.1) 06/09/19 12:11 MCV 87.7 fL (83.0-100.0) 06/09/19 12:11 MCH 29.4 pg (28.0-33.3) 06/09/19 12:11 MCHC 33.5 g/dL (31.6-35.5) 06/09/19 12:11 RDW 12.7 % (11.5-14.5) 06/09/19 12:11 Plt Count 246 K/mcL (140-400) 06/09/19 12:11 MPV 9.5 fL (9.4-12.4) 06/09/19 12:11 Immature Gran % 0.6 % (0-4) 06/09/19 12:11 Seg Neutrophils % 66.8 % 06/09/19 12:11 Lymphocytes % 18.2 % 06/09/19 12:11 Monocytes % 8.0 % 06/09/19 12:11 Eosinophils % 5.8 % 06/09/19 12:11 Basophils % 0.6 % 06/09/19 12:11 Neutrophils # 6.3 K/mcL (1.6-8.9) 06/09/19 12:11 Lymphocytes # 1.7 K/mcL (0.6-4.6) 06/09/19 12:11 Monocytes # 0.8 K/mcL (0.0-1.3) 06/09/19 12:11 Eosinophils # 0.5 K/mcL (0.0-0.6) 06/09/19 12:11 Basophils # 0.1 K/mcL (0.0-0.2) 06/09/19 12:11 Sodium 137 mEq/L (136-145) 06/09/19 12:11 Potassium 3.8 mEq/L (3.5-5.1) 06/09/19 12:11 Chloride 106 mEq/L (98-107) 06/09/19 12:11 Carbon Dioxide 23 mEq/L (23-29) 06/09/19 12:11 BUN 12 mg/dL (6-20) 06/09/19 12:11 Creatinine 0.69 mg/dL (0.70-1.30) L 06/09/19 12:11 Est GFR ( Amer) > 60 (> 60) 06/09/19 12:11 Est GFR (Non-Af Amer) > 60 (> 60) 06/09/19 12:11 BUN/Creatinine Ratio 17 (6-26) 06/09/19 12:11 Glucose 127 mg/dL (70-105) H 06/09/19 12:11 Calculated Osmolality 285 (280-300) 06/09/19 12:11 Calcium 9.1 mg/dL (8.6-10.3) 06/09/19 12:11 Urine Color Yellow (Yellow) 06/09/19 15:35 Urine Clarity Clear (Clear) 06/09/19 15:35 Urine pH 5.5 pH Units (5.0-8.0) 06/09/19 15:35 Ur Specific [place] 1.027 (1.010-1.025) H 06/09/19 15:35 Urine Protein Negative mg/dL (Neg-Trace) 06/09/19 15:35 Urine Glucose (UA) Normal mg/dL (Normal) 06/09/19 15:35 Urine Ketones Negative mg/dL (Negative) 06/09/19 15:35 Urine Blood Negative (Negative) 06/09/19 15:35 Urine Nitrite Negative (Negative) 06/09/19 15:35 Urine Bilirubin Negative (Negative) 06/09/19 15:35 Urine Urobilinogen Normal mg/dL (Normal) 06/09/19 15:35 Ur Leukocyte Esterase Small (Negative) H 06/09/19 15:35 Urine Microscopic RBC 0-3 per hpf (0-3) 06/09/19 15:35 Urine Microscopic WBC 15-30 per hpf (0-3) H 06/09/19 15:35 Ur Squamous Epith Cells Moderate per lpf (None-Few) H 06/09/19 15:35 Urine Bacteria None Seen per hpf (None-Few) 06/09/19 15:35 Hyaline Casts None Seen per lpf (None-Few) 06/09/19 15:35 Salicylates < 2.5 mg/dL (15.0-30.0) L 06/09/19 12:11 Urine Opiates Screen Negative ng/mL (Yybonx=441) 06/09/19 15:35 Ur Buprenorphine Scrn Positive ng/mL (Cutoff=5) H 06/09/19 15:35 Acetaminophen < 10 mcg/mL (10-20) L 06/09/19 12:11 Ur Barbiturates Screen Negative ng/mL (Clxrcy=829) 06/09/19 15:35 Ur Phencyclidine Scrn Negative ng/mL (Cutoff=25) 06/09/19 15:35 Ur Amphetamines Screen Positive ng/mL (Urpeuc=0302) H 06/09/19 15:35 U Benzodiazepines Scrn Negative ng/mL (Qwnhgc=684) 06/09/19 15:35 Urine Cocaine Screen Negative ng/mL (Cutoff= 300) 06/09/19 15:35 U Marijuana (THC) Screen Positive ng/mL (Cutoff = 50) H 06/09/19 15:35 Ur Drug Screen Interp See Below 06/09/19 15:35 Ethyl Alcohol < 10 mg/dL (Less than 10) 06/09/19 12:11 Assessment and Plan (1) Major depressive disorder, recurrent, unspecified Current visit: No Status: Acute Plan: Admit inpatient for safety and stabilization, Close observation, Suicide Precautions per unit protocol, Encourage participation in unit milieu, Group Therapy, Monitor sleep, Monitor appetite Additional Plan: Restart Zoloft 50 mg by mouth every morning. Encourage group attendance. Therapist to work on discharge planning. Risks, benefits, side effects, alternatives discussed w/pt: Yes Patient agreeable to treatment: Yes Plans for Post Hospital Care: Home Estimated Length of Stay (Days): 3 Qualifiers: Active/Remission status: currently active Psychotic features: without psychotic features Qualified Code(s): F33.2 - Major depressive disorder, rec urrent severe without psychotic features
[2019-06-10] MEDS ORDERED: Metoclopramide 10 MG/2 ML VIAL IM ONE (08:40)
[2019-06-10] MEDS ORDERED: cloNIDine HCl 0.1 MG TABLET PO PRN (08:40)
[2019-06-10] MEDS ORDERED: Ondansetron ODT 4 MG TAB.RAPDIS SL ONE (08:40)
[2019-06-10] MEDS: Nicotine 21 MG PATCH.TD24 TD SCH (09:24)
[2019-06-11] MEDS: Nicotine 21 MG PATCH.TD24 TD SCH (09:13)
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
[2019-06-12] MEDS: Nicotine 21 MG PATCH.TD24 TD SCH (09:26)
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
[2019-06-12 10:51] VITALS: BP 128/72
== END 2019-06-12 10:25 | disposition home or self-care (01) | DRG 751 ==
LOC: 1ANU 11:43 → EMEROOARM 11:43 → 1ANU 06-10 03:27
PROVIDERS: ADMIT Psychiatry & Neurology Psychiatry; ATTEND Psychiatry & Neurology Psychiatry